=== PATIENT | male | born 2000 | race Caucasian/White ===

== ENCOUNTER 2023-03-09 03:11 | Emergency (ER) | payer OTHER, BC, SELFPAY ==
[2023-03-09 03:11] VITALS: BP 125/73; PULSE 88; RESP 14; TEMP 36.8; O2SAT 98; BMI 17.2
--- NOTE | 2023-03-09 04:02 | EDS_ITS ---
HPI History of Present Illness Chief Complaint: Laceration Informant: patient Narrative Narrative: Patient is a 22 year old male presenting from work with hand laceration on the right. Patient was using a tool used to cut metal when it actually slipped and cut the back of his right hand. Patient is left-hand dominant. No associated numbness or tingling. Came in for wound care. This is a [employer] injury. No other injuries reported. No bleeding issues reported. Tetanus Immunization: Unknown PFSH PFS Medical History no medical history Home Medications NK 03/09/23 [History Last Taken Unknown] Allergy/AdvReac Type Severity Reaction Status Date / Time No Known Allergies Allergy Verified 03/09/23 03:14 Surgical History no surgical history Social History Smoking Status: Never smoker ROS ROS ED Constitutional Constitutional ED: Denies chills or fever(s) Musculoskeletal Musculoskeletal: Denies arthralgias or myalgias Integumentary Reports other Details: Right hand laceration Neurologic Neurologic: Denies paresthesias or weakness Hematologic/Lymphatic Hematologic/Lymphatic: Denies easy bleeding or easy bruising EXAM Physical Exam Const Vital Signs: 03/09/23 03:11 Temperature 98.2 F Temperature Source Temporal Pulse Rate 88 Respiratory Rate 14 Blood Pressure 125/73 H Blood Pressure Mean 90 Pulse Ox 98 Oxygen Delivery Method Room Air Positive well nourished and well developed General Appearance ED: well developed and NAD HEENT atraumatic Resp normal respiratory effort Cardio regular rhythm Rate: regular rate Extremity normal to inspection and full ROM Extremity Narrative: Normal range of motion of the right wrist and right hand. Normal range of motion of the fingers. General Extremety ED: Negative for deformity General Extremity: Negative for deformity Neuro oriented x3, moves all extremities, no focal motor deficits and no sensory deficits noted Psych mental status grossly normal Skin Skin Narrative: 1.5 cm full-thickness laceration of the dorsal aspect of the hand just proximal to the MCP between the 3rd and 4th metacarpals. No active bleeding at this time. No tendon involvement appreciated. PROC Procedures Lacerations Right hand: Length: 0.59 in Depth: Skin Shape: Linear Prep: Sterile Conditions and Chlorhexadine Laceration repair: Irrigated, Lidocaine with epi and Wound explored Number of Sutures/Shadi: 1 Suture Information: Ethilon, Horizontal, Mattress and 4-0 Comment: Hand soaked in chlorhexidine solution and then irrigated further with chlorhexidine solution MDM MDM MDM Narrative Medical decision making narrative: Patient evaluated for laceration to his hand. This did occur at work. Tetanus is updated. No concern for foreign body based on mechanism of injury and physical exam. Wound explored through full range of motion once anesthetized I do not appreciate any tendinous injury. See procedure note below for laceration repair. Patient given [email or web address] paperwork. Discharged home in stable condition. Given return precautions and counseled localized wound care and signs of infection. Discharge Plan Triage Chief Complaint: Laceration ED Provider: Hannah Daniel Dx/Rx/DC Orders Clinical Impression: Need for Tdap vaccination, Laceration of right hand Instructions: Tdap Vaccine, ED Laceration, Hand: All Closures Prescriptions: No Action NK Stand Alone Forms: Work Status Form Primary Care Provider: Care Physician,No Primary Referrals: Corporate,Care [Group of Physicians] - NOT,DEFINED [Non-Staff] - Activity Restrictions/Additional Instructions: Me you may alternate ibuprofen or Tylenol [id number] for pain control. Apply bacitracin twice a day to the wound. Keep clean and dry. Sutures need to be removed in 10 days. This can be done at the [facility] or [employer]'s [employer] provider.
[2023-03-09] MEDS: BACITRACIN 15 GM Tube 1 APPLIC TOPICAL (04:37)
[2023-03-09] MEDS: Diphth,Pertuss(Acell),Tet Vac 0.5 ML Vial IM (04:37)
[2023-03-09] MEDS: Lidocaine 1% /Epi 1:100 (20ml) 20 ML Vial INFILT (04:37)
[2023-03-09 05:40] VITALS: BP 115/74; PULSE 62; RESP 16; O2SAT 99
== END 2023-03-09 05:41 | disposition home or self-care (01) ==
LOC: ED 04:17
PROVIDERS: Emergency Provider Emergency Medicine; Visit Provider Emergency Medicine
DX: S61.411A Laceration without foreign body of right hand, initial encounter (principal); W27.8XXA Contact with other nonpowered hand tool, initial encounter; Z23 Encounter for immunization; Y99.0 Civilian activity done for income or pay
CPT/HCPCS: 12001; 90471; 90715; 99283

== ENCOUNTER 2023-06-15 22:51 | Emergency (ER) | payer BC, SELFPAY ==
[2023-06-15 22:52] VITALS: BP 106/71; PULSE 65; RESP 16; TEMP 36.7; O2SAT 98; BMI 18.1
--- NOTE | 2023-06-16 00:49 | EDS_ITS ---
HPI History of Present Illness Chief Complaint: Wound Informant: patient Narrative Narrative: Patient is a 23-year-old male with no significant past medical history. He states over the last 2 or 3 days he noticed a lump along the roof of his mouth. He states it is painful in nature but it is controlled with Tylenol or Motrin. He states has been no spontaneous drainage from the area and he denies any injury. He states he saw the dentist 1 to 2 days ago and was told it was not an infection but over the last 24 hours is increased in size and he is concerned that it was misdiagnosed and therefore he comes in for evaluation [facility] Medical History no medical history no medical history Home Medications amoxicillin 875 mg-potassium clavulanate 125 mg tablet 1 tab PO BID 7 days #14 tabs 06/16/23 [Rx Last Taken Unknown] Allergy/AdvReac Type Severity Reaction Status Date / Time No Known Allergies Allergy Verified 06/15/23 22:54 Surgical History no surgical history Social History Smoking Status: Never smoker ROS ROS ED Constitutional Constitutional ED: Denies chills or fever(s) ENT ENT ED: Reports other Details: Positive mouth lesions/pain ; Denies sore throat Cardiovascular Cardiovascular: Denies chest pain Respiratory/Chest Respiratory/Chest: Denies cough or dyspnea Gastrointestinal Gastrointestinal: Denies abdominal pain, diarrhea, nausea or vomiting Genitourinary Genitourinary ED: Denies dysuria Musculoskeletal Musculoskeletal: Denies myalgias Integumentary Denies rash Neurologic Neurologic: Denies headache(s) Hematologic/Lymphatic Hematologic/Lymphatic: Denies easy bleeding or easy bruising EXAM Physical Exam Const Vital Signs: 06/15/23 22:52 06/16/23 00:59 Temperature 98.1 F 98.1 F Temperature Source Temporal Pulse Rate 65 65 Respiratory Rate 16 16 Blood Pressure 106/71 106/71 Blood Pressure Mean 82 82 Pulse Ox 98 98 Oxygen Delivery Method Room Air Positive well nourished and well developed General Appearance ED: well developed HEENT Reports moist mucous membranes HEENT Narrative: There is a 1 x 1 cm area of fluctuance along the hard palate along the left side of the mouth that is tender to touch and concerning for abscess Otherwise no tongue or lip swelling no airway edema or compromise Eyes PERRL and EOMs intact bilaterally Neck supple Resp normal respiratory effort and clear to auscultation bilaterally Cardio regular rate and regular rhythm Extremity normal to inspection Neuro oriented x3, CN's II-XII intact bilaterally and no sensory deficits noted Sensorium / Orientation: alert Motor Exam: strength 5/5 throughout Psych mental status grossly normal Skin no rashes or lesions noted, no wounds and skin turgor normal MDM MDM MDM Narrative Medical decision making narrative: Patient presented to the ER with stable vitals and had no signs of airway edema or compromise. Physical exam is consistent with dental abscess however the differential diagnosis is also for infected cyst versus aphthous ulcer. As the area is most likely a dental abscess he underwent a dental block as document below following incision and drainage. As the area has now been drained and he does not have signs of respiratory distress or systemic infection there is no need for further workup and he is otherwise safe for discharge Patient was given a left superior alveolar dental block using 3 mL of 1% lidocaine with epinephrine. Following the injection a #11 blade was used to make a 1 cm incision over top the area of fluctuance to the left sided hard palate. A moderate amount of purulent material was expressed. Patient tolerated procedure well without complication History & Record Review Discussion w/independent historian: Patient Discharge Plan Triage Chief Complaint: Wound ED Provider: Hayes Nichols Dx/Rx/DC Orders Clinical Impression: Abscess, dental Instructions: Dental Abscess Prescriptions: New amoxicillin-pot clavulanate 875-125 mg tablet 1 tab PO BID 7 Days Qty: 14 0RF Primary Care Provider: Care Physician,No Primary Referrals: Care Physician,No Primary [Primary Care Provider] - Activity Restrictions/Additional Instructions: Please follow-up with your dentist if needed. Continue with salt water gargles to remove any remaining infection and return to the ER should you have any further concerns Disposition Disposition: Home, Self Care
[2023-06-16] MEDS: Amox/Clavulanate 875 MG Tablet PO (00:57)
[2023-06-16 00:59] VITALS: BP 106/71; PULSE 65; RESP 16; TEMP 36.7; O2SAT 98
== END 2023-06-16 00:57 | disposition home or self-care (01) ==
PROVIDERS: Emergency Provider Emergency Medicine; Visit Provider Emergency Medicine
DX: K04.7 Periapical abscess without sinus (principal)
CPT/HCPCS: 41800; 99282